=== PATIENT | male | born 1955 | race Caucasian/White ===

== ENCOUNTER 2023-01-22 07:30 | Outpatient (RCR) | payer MEDICARE, BC, SELFPAY | END 2023-05-06 23:59 | disposition home or self-care (01) | PROVIDERS: Visit Provider Family Medicine | DX: M54.16 Radiculopathy, lumbar region (principal); Z51.89 Encounter for other specified aftercare | CPT/HCPCS: 97110; 97162 ==

== ENCOUNTER 2023-08-10 14:04 | Outpatient (CLI) | payer MEDICARE, BC, SELFPAY ==
--- NOTE | 2023-08-10 14:30 | CRLHL7_ITS ---
For Patients: As a result of the Century Cures Act, medical imaging exams and procedure reports are released immediately into your electronic medical record. You may view this report before your referring provider. If you have questions, please contact your health care provider. Indication: Lumbar radiculopathy. Technique: Multiplanar, multisequence MRI of the lumbar spine was performed without intravenous contrast. Comparison: None relevant available. Findings: Lumbosacral transitional anatomy. Transitional segment is labeled as S1, with partial lumbarization. The vertebral body heights are maintained without evidence of fracture. There is no discrete T1 hypointense marrow infiltrating process. The conus medullaris terminates at L1, normal. Redundancy to the cauda equina nerve roots above the L3-4 and L4-5 disc levels. T12-L1: No spinal canal or neural foraminal stenosis. L1-2: No spinal canal or neural foraminal stenosis. Mild facet arthropathy. L2-3: Disc bulge with superimposed central disc protrusion results in moderate spinal canal stenosis. Mild neural foraminal narrowing. Moderate facet arthropathy. L3-4: Disc degeneration. Disc bulge coupled with ligamentum flavum thickening, facet hypertrophy and posterior epidural lipomatosis result in severe thecal sac narrowing. Moderate neural foraminal stenosis. Moderate facet arthropathy. L4-5: Grade 1 anterolisthesis. Uncovering the disc coupled with ligamentum flavum thickening and facet hypertrophy results in severe spinal canal stenosis. Mild neural foraminal narrowing. Severe facet arthropathy. L5-S1: Disc bulge resulting in mild spinal canal narrowing. Mild to moderate right and mild left neural foraminal narrowing. [id number] facet arthropathy. Mild sacroiliac joint osteoarthritis. Impression: 1. Lumbosacral transitional anatomy. Transitional segment is labeled as S1, with partial lumbarization. Careful clinical correlation and radiographic localization is recommended prior to any planned surgical intervention. 2. At L4-5, severe spinal canal stenosis. 3. At L3-4, severe thecal sac narrowing with moderate neural foraminal stenosis. 4. At L2-3, moderate spinal canal stenosis. 5. Moderate to severe multilevel facet arthropathy. Dictated by Darryl Ruiz MD @ 08/11/2023 4:06:19 PM (Electronically Signed)
== END 2023-08-10 14:05 | disposition home or self-care (01) ==
PROVIDERS: PCP Family Medicine; Visit Provider Family Medicine
DX: M54.16 Radiculopathy, lumbar region (principal); M48.061 Spinal stenosis, lumbar region without neurogenic claudication
CPT/HCPCS: 72148

== ENCOUNTER 2024-04-24 07:00 | Outpatient (CLI) | payer MEDICARE, BC, SELFPAY ==
--- NOTE | 2024-04-24 07:15 | CRLHL7_ITS ---
For Patients: As a result of the Century Cures Act, medical imaging exams and procedure reports are released immediately into your electronic medical record. You may view this report before your referring provider. If you have questions, please contact your health care provider. INDICATION: Left leg pain. COMPARISON: 08/10/2023. Technique Sagittal T1, T2, and STIR sequences. Axial T1 and T2 weighted sequences. FINDINGS: Compared to the previous exam, increased anterolisthesis of L4 on L5 now measuring approximately 6 mm. Otherwise, normal alignment. No fractures. No vertebral body loss of height. Since the previous exam, interval postoperative changes of decompressive laminectomies at L3-4 and L4-5. Mild edema within the posterior soft tissues of the operative bed. No suspicious osseous lesions. Normal conus terminates at L1. T12-L1: No spinal canal neural foraminal narrowing. L1-2: No spinal canal or neural foraminal narrowing. L2-3: Disc degeneration loss disc height. Posterior disc herniation. Moderate narrowing of the spinal canal. Left subarticular recess narrowing of potential impingement of the traversing left L3 nerve root. No narrowing of the right neural foramen. Moderate narrowing of left neural foramen. Mild facet arthropathy. L3-4: Postoperative changes. Disc degeneration diffuse disc bulge. Stable small right paracentral disc extrusion measures approximately 7 mm in diameter with 6 mm of caudal migration. Spinal canal is decompressed by laminectomy. Disk extrusion partially narrows the right subarticular recess with potential impingement of the traversing right L4 nerve root. Mild narrowing of the bilateral foramina. Mild facet arthropathy. L4-5: Grade 1 anterolisthesis. Postoperative changes. There remains moderate narrowing of spinal canal. Facet arthropathy contributes to focal narrowing of bilateral subarticular recesses with potential impingement of the traversing L5 nerve roots. Oblique orientation of the neural foramina with [id number] narrowing. Moderate facet arthropathy. L5-S1: Disc degeneration. Diffuse disc bulge. Superimposed right paracentral disc protrusion measures approximately 3 mm in short axis. No narrowing of the spinal canal. No rafi impingement of the traversing S1 nerve roots. Moderate right and mild left neural foraminal narrowing. Mild facet arthropathy. Degenerative changes visualized SI joints. IMPRESSION: 1. Increased anterolisthesis of L4 on L5. Otherwise, normal alignment. No fractures 2. Interval postoperative changes of decompressive laminectomies at L3-4 and L4-5. Mild edema within the posterior soft tissues of the operative bed. 3. Lumbar spondylosis 4. At L2-3, moderate narrowing of the spinal canal. Potential impingement of the traversing left L3 nerve root. Moderate narrowing of the left neural foramen 5. At L3-4, disc degeneration diffuse disc bulge. Small right paracentral disc extrusion with caudal migration. Potential impingement of the traversing right L4 nerve root. Mild narrowing of the bilateral neural foramina 6. At L4-5, moderate narrowing of the spinal canal. Potential impingement of the traversing L5 nerve roots. Hltx-hs-rffjbafz narrowing of the bilateral neural foramina 7. At L5-S1, right paracentral disc protrusion. No narrowing of the spinal canal. Moderate right and mild left neural foraminal narrowing. Dictated by Blayne Smith MD @ 04/24/2024 10:51:10 AM (Electronically Signed)
== END 2024-04-24 07:01 | disposition home or self-care (01) ==
LOC: MRI 07:02
PROVIDERS: PCP Family Medicine
DX: M79.605 Pain in left leg (principal); M47.896 Other spondylosis, lumbar region; M51.36 Other intervertebral disc degeneration, lumbar region; M51.27 Other intervertebral disc displacement, lumbosacral region
CPT/HCPCS: 72148

== ENCOUNTER 2024-05-23 07:31 | Outpatient (CLI) | payer MEDICARE, BC, SELFPAY | END 2024-05-23 07:32 | disposition home or self-care (01) | LOC: INJ CL 07:34 | PROVIDERS: PCP Family Medicine; Visit Provider Family Medicine | DX: M54.16 Radiculopathy, lumbar region (principal); M51.36 Other intervertebral disc degeneration, lumbar region | CPT/HCPCS: 64483; J1100; Q9966 ==

== ENCOUNTER 2025-09-05 10:41 | Outpatient (CLI) | payer MEDICARE, BC, SELFPAY ==
[2025-09-05 10:45] VITALS: BP 135/77; PULSE 60; RESP 16; O2SAT 100
--- NOTE | 2025-09-05 13:40 | P.PCN_ITS ---
Procedure Note Time Seen by Provider: 13:00 Date Seen: 09/05/25 Provider Contact Time: 13:45 Date of procedure: 09/05/25 Will [facility] bill your pro fee for this procedure?: Yes Procedure: CRYONEUROLYSIS TREATMENT REPORT REFERRING PROVIDER: Dr. Musa Raygoza TREATMENT PROVIDER: Adam Rueda PREOPERATIVE DIAGNOSIS: Left knee osteoarthritis POSTOPERATIVE DIAGNOSIS: Left knee osteoarthritis? PROCEDURE: Cryoneurolysis of Multiple Sensory Nerves of the Knee ANESTHESIA: Local INDICATIONS: The patient is a very pleasant 69-year-old male patient with primary osteoarthritis involving the left knee who presents today for cryoneurolysis of multiple sensory nerves to the knee for severe knee pain.?Patient medical history was reviewed. The risks, benefits, treatment alternatives, and complications were discussed with the patient, including but not limited to bleeding, infection, nerve or tissue damage.?Informed consent was obtained. ? PRE-TREATMENT MOTOR ASSESSMENT/PAIN SCORE: Patient was able to demonstrate intact gross motor function with plantarflexion, dorsiflexion, adduction, abduction, hip flexion, and extension of the lower extremity.?Pre-treatment pain score of 4 out of 10 in the left knee. DESCRIPTION OF PROCEDURE: After obtaining informed consent, the patient was brought back to the treatment room and positioned supine on the table.?The left lower extremity was prepped with Chlorhexadine.?We began the procedure by performing our procedural pause.?Once this was completed and verified to be accurate, I began the procedure by identifying the nerves with the use of bedside ultrasound.?After the nerves were identified, the skin was marked and, using 1% lidocaine plain, the area of the nerves were anesthetized. ? After the anesthetic was administered, the Smart Tip [id number] cryoneurolysis needle was inserted into the treatment sites using ultrasound guidance.?Treatment was then initiated on the left lower extremity with the following nerves treated: Superior, superior medial, superior lateral, inferior medial genicular nerves and the infrapatellar branch of the saphenous nerve. At the termination of the treatment, the cryoneurolysis needle was removed with the patient's skin cleansed and Band-Aids and compression dressing applied. Patient tolerated the procedure without any incident or concern.? Patient was then instructed to stand, mobilize the joint, and was examined to ensure gross motor skills were intact. COMPLICATIONS: None POST-TREATMENT PAIN SCORE: 0 out of 10 in the left knee DISPOSITION: Discharge instructions were given to the patient with education on the post-procedure expectations. Patient was instructed to call the Ortho clinic with any post-procedure concerns or questions.
[2025-09-05 13:51] VITALS: BP 131/71; RESP 16; TEMP 36.9; O2SAT 99
== END 2025-09-05 13:53 | disposition home or self-care (01) ==
LOC: OP CLINIC 10:42
PROVIDERS: PCP Family Medicine; Visit Provider Nurse Anesthetist, Certified Registered
DX: M17.12 Unilateral primary osteoarthritis, left knee (principal)
CPT/HCPCS: 64640; 76942; C9809